=== PATIENT | male | born 1985 | race Caucasian/White ===

== ENCOUNTER → 2019-09-05 | Outpatient (CLI) | payer BC | LOC: COL.RAD 08:07 | DX: S43.431A Superior glenoid labrum lesion of right shoulder, initial encounter (principal); S43.432A Superior glenoid labrum lesion of left shoulder, initial encounter; M19.011 Primary osteoarthritis, right shoulder; M25.711 Osteophyte, right shoulder; M77.9 Enthesopathy, unspecified; M24.812 Other specific joint derangements of left shoulder, not elsewhere classified; M24.811 Other specific joint derangements of right shoulder, not elsewhere classified; Z98.890 Other specified postprocedural states | CPT/HCPCS: A9585; Q9967 ==